=== PATIENT | female | born 1960 | race Asian ===

== ENCOUNTER 2020-09-12 15:25 | Day surgery (SDC) | payer OTHER ==
[~2020-09-12 15:25] MED LIST: Bupivacaine PF 0.75% SDV 10 ML ONE; CEFAZOLIN 1 GM VIAL ONE; Lidocaine 1% PF 5 ML VIAL ONE; Lidocaine 4% PF 5 ML AMP ONE; Maxitrol 0.1% Opth Oint 3.5 GM TUBE ONE; PROPOFOL 200 MG/20 ML VIAL ONE; Triamcinolone 40 MG/ML VIAL ONE
[2020-09-12] MEDS ORDERED: Phenylephrine 2.5% Ophth Soln 5 ML BOT FS SCH (16:45)
[2020-09-12] MEDS ORDERED: Fluorouracil 100 MG, Enoxaparin Sodium 25 MG, EPINEPHrine 0.3 MG in Ophthalmic Irrigati... IRR SCH (16:45)
[2020-09-12] MEDS ORDERED: Cyclopentolate 1% Opth Drop 2 ML BOT FS SCH (16:45)
[2020-09-12] MEDS ORDERED: PROPOFOL 20 ML ONE (17:01)
[2020-09-12] MEDS ORDERED: Fentanyl 100 MCG/2 ML VIAL ONE (17:01)
[2020-09-12] MEDS ORDERED: Midazolam HCl 2 mg/2 ml Vial ONE (17:01)
[2020-09-12] MEDS ORDERED: Cyclopentolate 1% Opth Drop 2 ML BOT ONE (17:04)
[2020-09-12] MEDS ORDERED: Phenylephrine 2.5% Ophth Soln 5 ML BOT ONE (17:04)
--- NOTE | 2020-09-13 12:47 | OP ---
DATE OF PROCEDURE: 09/12/2020 PREOPERATIVE DIAGNOSIS: Rhegmatogenous retinal detachment, right eye. POSTOPERATIVE DIAGNOSIS: Rhegmatogenous retinal detachment, right eye. PROCEDURE: Pars plana vitrectomy, retinal detachment repair, right eye. ANESTHESIA: Local with monitored anesthesia care. PROCEDURE IN DETAIL: The patient was identified in the preoperative holding area. Appropriate informed consent for the planned surgical procedure on the right eye has been obtained. The patient was transported to the operative suite. Appropriate cardiopulmonary monitor was established, local anesthesia obtained using retrobulbar modified Van Lint lid block using 50:50 mixture of 4% lidocaine, 0.75% bupivacaine. The patient was prepped and draped in usual sterile manner for ophthalmic surgery, right eye. Lid speculum was placed in the right eye. A 25-gauge trocar was placed through the conjunctiva and sclera superotemporally, inferotemporally, superonasally. Infusion line was placed inferotemporally. Light pipe vitreous cutter inserted to the eye. Core vitrectomy was performed. Retinal detachment was noted superiorly surrounding a superior nasal retinal break. Traction was removed from the retinal break. Posterior drained retinotomy was created and air-fluid exchange was performed. Laser was placed in the superior retinal periphery using Endolaser delivery device. No further holes, breaks, or tears were identified. 28% sulfur x-ray gas was infused into the eye and sclerotomies were suture closed with 6-0 plain gut suture. Retrobulbar Kenalog and sequential Ancef were placed. Antibiotic ointment was placed. The eye was patched and shielded. The patient was taken to postop recovery unit in good condition having suffered no immediate perioperative complications. The patient was instructed to keep patch shield on, avoid lifting or bending. Followup appointment with Dr. Alberto. Job ID: [id number]
== END 2020-09-12 19:15 | disposition home or self-care (01) ==
LOC: SDC 15:25
PROVIDERS: ATTEND Ophthalmology Retina Specialist
PROC: 08T43ZZ Resection of Right Vitreous, Percutaneous Approach (ICD-10-PCS; principal; 2020-09-12)
DX: H33.011 Retinal detachment with single break, right eye (principal); G43.909 Migraine, unspecified, not intractable, without status migrainosus
CPT/HCPCS: 67025; J0171; J0690; J1650; J2250; J2704; J3010; J3301; J3490; J9190

== ENCOUNTER 2021-03-09 14:31 | Outpatient (CLI) | payer OTHER | END 2021-03-09 14:32 | disposition home or self-care (01) | LOC: BICMAMMO 14:31 | PROVIDERS: ATTEND Nurse Practitioner Family | DX: Z12.31 Encounter for screening mammogram for malignant neoplasm of breast (principal); Z80.3 Family history of malignant neoplasm of breast | CPT/HCPCS: 77063; 77067 ==

== ENCOUNTER 2022-06-03 15:12 | Outpatient (CLI) | payer BC | END 2022-06-03 15:13 | disposition home or self-care (01) | LOC: BICMAMMO 15:12 | PROVIDERS: ATTEND Nurse Practitioner Family | DX: Z12.31 Encounter for screening mammogram for malignant neoplasm of breast (principal); Z80.3 Family history of malignant neoplasm of breast | CPT/HCPCS: 77063; 77067 ==